=== PATIENT | male | born 1950 | race Caucasian/White ===

== ENCOUNTER 2016-11-16 13:50 | Inpatient (IN) ==
[2016-11-16] MEDS ORDERED: MORPHINE 2 MG/1 ML SYRINGE IV STA (14:12)
[2016-11-16] MEDS ORDERED: ASPIRIN 325 MG TABLET PO STA (14:12)
[2016-11-16] MEDS ORDERED: ONDANSETRON 4 MG/2 ML VIAL IV STA (14:12)
[2016-11-16] MEDS ORDERED: SODIUM CHLORIDE 0.9% 1,000 ML IV STA (14:12)
[2016-11-16] MEDS ORDERED: ENOXAPARIN 100 MG/ML SYRINGE SUBCUT STA (14:12)
[2016-11-16] MEDS ORDERED: ALUM/MAG/SIMETH/LIDO VISC 1:1 30 ML BOTTLE PO STA (14:13)
[2016-11-16] MEDS ORDERED: PANTOPRAZOLE 40 MG VIAL IV STA (14:13)
[2016-11-16] MEDS ORDERED: PANTOPRAZOLE 40 MG VIAL IV ONE (14:17)
[2016-11-16] MEDS ORDERED: ENOXAPARIN 100 MG/ML SYRINGE SUBCUT ONE (14:17)
[2016-11-16] MEDS ORDERED: ONDANSETRON 4 MG/2 ML VIAL ONE (14:17)
[2016-11-16] MEDS ORDERED: ASPIRIN 325 MG TABLET ONE (14:18)
[2016-11-16] MEDS ORDERED: ALUM/MAG/SIMETH/LIDO VISC 1:1 30 ML BOTTLE PO ONE (14:18)
[2016-11-16] MEDS ORDERED: MORPHINE 2 MG/1 ML SYRINGE ONE (14:18)
[2016-11-16] MEDS ORDERED: TICAGRELOR 90 MG TABLET ONE (14:21)
[2016-11-16] MEDS ORDERED: LIDOCAINE 1% 20 ML VIAL ONE (14:25)
[2016-11-16] MEDS ORDERED: SODIUM BICARBONATE 2.4 MEQ/5 ML VIAL ONE (14:25)
[2016-11-16] MEDS ORDERED: HEPARIN/NACL 0.9% 2 UNITS/ML 1,500 ML IV ONE (14:25)
[2016-11-16 14:26] LABS: Basophils % 0.6 % (0.0-0.8); Eosinophils # 0.2 10*3/uL (0.0-0.87); Eosinophils % 2.2 % (0.00-10.9); Hematocrit 43.2 VOL% (42.0-52.0); Hemoglobin 14.8 GM/DL (14.0-18.0); Immature Granulocytes % 0.3 %; Immature Granulocytes Absolute 0.02 #; Lymphocytes # 1.6 10*3/uL (1.4-4.0); Lymphocytes % 22.4 % (21.2-54.2); Mean Corpuscular HGB Conc 34.3 GM/DL (32-36); Mean Corpuscular Hemoglobin 30 PG (27-34); Mean Corpuscular Volume 88.3 FL (87-102); Mean Platelet Volume 11.5 FL (9.6-12.0); Monocytes # 0.5 10*3/uL (0.11-0.8); Monocytes % 7.3 % (1.7-12.7); Neutrophils # 4.9 10*3/uL (1.4-7.4); Neutrophils % 67.2 % (38.7-73.9); Platelet Count 158 T/CUMM (130-400); Red Blood Count 4.89 MC/CUMM (3.8-5.5); Red Cell Distribution Width 12.5 % (9.3-17.3); White Blood Count 7.2 T/CUMM (4-12)
[2016-11-16] MEDS ORDERED: MIDAZOLAM 2 MG/2 ML VIAL ONE (14:29)
[2016-11-16] MEDS ORDERED: BIVALIRUDIN 250 MG VIAL IV ONE (14:29)
[2016-11-16] MEDS ORDERED: fentaNYL 100 MCG/2 ML VIAL ONE (14:29)
[2016-11-16] MEDS ORDERED: HEPARIN/NACL 0.9% 2 UNITS/ML 500 ML IV ONE (14:29)
--- NOTE | 2016-11-16 14:33 | EKG Report ---
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
[2016-11-16 14:34] LABS: INR 1.2; PT Patient Result 12.7 SECS; Partial Thromboplastin Time 24.2 SECS (0-40)
[2016-11-16] MEDS ORDERED: ENOXAPARIN 30 MG/0.3 ML SYRINGE ONE (14:34)
[2016-11-16] MEDS ORDERED: EPTIFIBATIDE 75 MG/100 ML BOTTLE IV ONE (14:36)
[2016-11-16] MEDS ORDERED: EPTIFIBATIDE 20,000 MCG/10 ML VIAL ONE ×2 (14:36→15:15)
[2016-11-16] MEDS ORDERED: TICAGRELOR 90 MG TABLET PO ONE (14:39)
[2016-11-16 14:46] LABS: Alanine Aminotransferase 18 U/L (16-61); Albumin 3.8 G/DL (3.4-5.0); Alkaline Phosphatase 76 U/L (45-117); Aspartate Amino Transferase 23 U/L (0-37); Blood Urea Nitrogen 16 MG/DL (7-18); Calcium 8.9 MG/DL (8.5-10.1); Glucose 117 MG/DL (74-106); Osmolality,Calculated 287.8 MOS/KG (273-304); Potassium 3.7 MMOL/L (3.5-5.1); Sodium 144 MMOL/L (136-145); Total Protein 6.5 G/DL (6.4-8.3); Troponin I Only < 0.015 NG/ML (0.00-0.045)
[2016-11-16] MEDS ORDERED: MORPHINE 10 MG/1 ML VIAL ONE (14:46)
--- NOTE | 2016-11-16 15:03 | Emergency Department Note ---
Shira Camejo Hilary, am scribing for, and in the presence of, Ken Rubio MD 14: 25. Joanne Camejo James D, MD, personally performed the services described in this documentation, ascribed by Emily Silva in my presence, and it is both accurate and complete 503 . Arrival - Arrival Chief Complaint: Chest Pain Stated Complaint: dyspnea, pain shoulder blade,chest pain ED Nursing Triage Note: Oumar was mowing the grass today and reports he completed the yard. He took a shower and put his clothes on but his pain got worse. He reports chest pain, shortness of breath, with numbness and tingling to bilateral upper extremities. Mode of Arrival: Wheelchair Limitations: No Limitations Source: Patient, Significant other (), RN Notes Reviewed Time Seen by Provider: 11/16/16 14:12 - History of Present Illness HPI Narrative: Pt is a 66 y/o white male presenting to the ED with c/o chest pain which onset around 1300. 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 Pt confirms SOB, chest pain that radiates to his shoulder blade, and tingling down his left arm but denies nausea. Pt has no medical problems to speak of per his . Onset (ago): hour(s) Allergies/Adverse Reactions: Allergies Allergy/AdvReac Type Severity Reaction Status Date / Time ciprofloxacin [From Cipro] Allergy BLISTER Verified 11/16/16 14:03 Sulfa (Sulfonamide Allergy BLISTER Verified 11/16/16 14:03 Antibiotics) Review of System - Review of System 12 point system: reviewed and no additional remarkable complaints except as stated - Review of System Constitutional: Absent: fever Respiratory: Present: respiratory distress (SOB) Cardiovascular: Present: chest pain (radiating to shoulder blade and down left arm) Medical,Surgical,& Family Hx - Social History Smoking Status: Never smoker Frequency of Alcohol Use: None Type of Drug Use: None Exam Physical Examination: GENERAL: This is a well-nourished, well-developed white male in no apparent distress. VITAL SIGNS: Temperature: 96.0 Pulse: 61 Respiratory: 22 Blood Pressure: 105/71 O2Sat: 100 HEENT: Head is normocephalic and atraumatic. Pupils are equally round and reactive to light. Extraocular movement are intact. Oropharynx is benign with moist mucous membranes. NECK: Neck is soft and supple without tenderness. There are no masses. There is no lymphadenopathy. LUNGS: Lungs are clear to auscultation bilaterally. Chest rises symmetrically. There is no chest wall tenderness. CV: Heart is regular rate and rhythm without murmurs, rubs, or gallops. ABDOMEN: Abdomen is soft, non-tender to palpation. There are no abnormal masses palpated. There is no organomegaly. Bowel sounds are present and active. SKIN: Skin is warm and dry. No rash. EXTREMITIES: Patient has full range of motion without tenderness. There is no pedal edema. NEUROLOGIC: Awake, alert, and oriented x4. Cranial nerves II through XII are grossly intact. There are no motorsensory deficits. PSYCHIATRIC: Normal affect. Normal mood. Vital Signs: Vital Signs Temperature 97.0 F L 11/16/16 13:51 Pulse Rate 62 11/16/16 13:51 Respiratory Rate 22 11/16/16 13:51 Blood Pressure 105/71 11/16/16 13:51 O2 Sat by Pulse Oximetry 100 11/16/16 13:51 Course Course Narrative: Patient was given subcu Lovenox, Brilinta p.o., morphine, Zofran, and aspirin while in the emergency department. - Consultations Consultation #1: Discussed with Dr. Garcia. 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 Time: 14:25 Results - Labs CBC & BMP: 11/16/16 14:06 11/16/16 14:06 Lab Results: I have reviewed the patients labs Labs: Laboratory Tests 11/16/16 14:06 Troponin I < 0.015 - EKG EKG results: interpreted by ERMD - Impressions EKG: #1 performed at 1352 reveals normal sinus rhythm with normal ST-T waves, normal axis. Rate 70. EKG #2: Performed at 1419 reveals normal sinus rhythm with a rate of 70, ST segment elevation in 2 3 and aVF consistent with an inferior WA. Disposition Clinical Impression: Acute inferior STEMI Case discussed with: patient, patient's family Disposition: Still a Patient Condition: Critical
[2016-11-16] MEDS ORDERED: MORPHINE 2 MG/1 ML SYRINGE IV PRN (15:10)
[2016-11-16] MEDS ORDERED: ACETAMINOPHEN 325 MG TABLET PO PRN (15:10)
[2016-11-16] MEDS ORDERED: ONDANSETRON 4 MG/2 ML VIAL IV PRN (15:10)
[2016-11-16] MEDS ORDERED: ZALEPLON 5 MG CAPSULE PO PRN (15:10)
[2016-11-16] MEDS ORDERED: ACETAMINOPHEN/CODEINE 300-30 MG TABLET PO PRN (15:10)
[2016-11-16] MEDS ORDERED: EPTIFIBATIDE 75 MG/100 ML BOTTLE IV SCH (15:30)
[2016-11-16] MEDS ORDERED: SODIUM CHLORIDE 0.45% 1,000 ML IV SCH (15:30)
--- NOTE | 2016-11-16 15:32 | History and Physical Update ---
Sedation H&P Update - History and Physical H&P was reviewed, the patient examined and there: are no changes in the patients condition since last H&P was completed. - Dictation Physical: refer to H&P completed by admitting physician - Physical Exam Mental Status: alert and oriented Heart: regular rate and rhythm Lung: clear to auscultation Abdomen: within normal limits Vitals: within normal limits History and Physical Changes: The patient presented with acute inferior myocardial infarction. He was evaluated in the Technical Recruiter and I obtained verbal consent from the patient emergently. - Sedation Plan for Sedation: moderate Patient Consent: Procedure disscussed with patient and patinet has consented., Risks and benefits were discussed with patient,including infection,, bleeding, injury to surrounding structures, seizure, temporary nerve, Patient understands and accepts potential risks/benefits and agrees to, proceed. ASA Class: IV Airway Assessment: Class I: Soft palate, uvula, fauces, pillars visible
--- NOTE | 2016-11-16 15:34 | Cardiology History & Physical ---
Assessment and Plan (1) Acute DE, inferior wall Status: Acute Assessment and plan: The patient underwent emergent PCI of his distal right coronary artery with placement of rebel 4 x 60 mm bare-metal stent. He will be treated with aspirin , Brilinta, high-dose Lipitor. We will initiate low-dose beta ramon therapy. Further plan will depend on his clinical evolution. Current Visit: Yes History of Present Illness Chief complaint: CP History of present illness: The patient was evaluated emergently in the Review Coordinator Mr. Monroe is a 66 year old male without a prior cardiac history. He was in his usual state of health until today when he experienced acute onset of severe chest pressure. It radiated into his left arm with associated dizziness, diaphoresis, nausea, shortness of breath. He came to the emergency room and initially his EKG was normal, he then developed worsening symptoms and repeat ECG showed inferior ST elevation. The Review Coordinator was activated and he was encountered in the Review Coordinator for emergent cardiac catheterization. Please see that report for full details. He denies any antecedent exertional chest discomfort, orthopnea, paroxysmal nocturnal dyspnea, lower extremity edema. He has not had any recent acute illnesses. He has no contraindication to dual antiplatelet therapy and denied IVP dye allergy. Allergies Allergy/AdvReac Type Severity Reaction Status Date / Time ciprofloxacin [From Cipro] Allergy BLISTER Verified 11/16/16 14:03 Sulfa (Sulfonamide Allergy BLISTER Verified 11/16/16 14:03 Antibiotics) 12 point system: reviewed and no additional remarkable complaints except as stated Medical,Surgical,& Family Hx - Social History Smoking Status: Never smoker Frequency of Alcohol Use: None Type of Drug Use: None Marital Status: Lives With:: Spouse Functional capacity: independent ambulation Cardiology Physical Exam - Constitutional Vitals: Vital Signs Temp Pulse Resp BP Pulse Ox 97.0 F L 62 22 105/71 100 11/16/16 13:51 11/16/16 13:51 11/16/16 13:51 11/16/16 13:51 11/16/16 13:51 Intake and Output 11/15/16 11/16/16 11/16/16 23:59 07:59 15:59 Other: Weight 104.326 kg Patient Weight 11/16/16 23:59 Weight 104.326 kg Exam: General appearance: normal weight, no acute distress - Head Head exam: Present: normal inspection, normocephalic, atraumatic. Absent: hematoma, laceration - Eye Eye exam: Present: EOMI. Absent: conjunctival injection, nystagmus, periorbital swelling, scleral icterus, laceration to eyelids Pupils: Present: PERRL. Absent: constricted, dilated, fixed, irregular, unequal - ENT ENT exam: Present: normal exam, normal external ear exam - Neck Neck exam: Present: normal inspection. Absent: lymphadenopathy, meningismus, tenderness, thyromegaly - Respiratory Respiratory exam: Present: clear to auscultation bilaterally. Absent: accessory muscle use, chest wall tenderness - Cardiovascular Cardiovascular exam: Present: regular rate and rhythm. Absent: carotid bruit, gallop, JVD, rubs - GI/Abdominal GI/Abdominal exam: Present: normal bowel sounds, soft. Absent: distended, firm , guarding, hernia, mass, tenderness, rebound. - Extremities Exam Extremities exam: Present: normal inspection, normal capillary refill. Absent: calf tenderness, edema - Back Exam Back exam: Present: normal inspection. Absent: muscle spasm, vertebral tenderness - Neurological Exam Neurological exam: Present: alert, oriented X3, grossly intact without resting or intention tremor - Psychiatric Psychiatric exam: Present: normal affect, normal mood - Skin Skin exam: Present: normal color, warm, dry, intact. Absent: cyanosis, diaphoretic, rash, urticaria Result/EKG - Labs CBC & BMP: 11/16/16 14:06 11/16/16 14:06 Lab Results: I have reviewed the past 24 hour labs Labs: Laboratory Results - last 24 hr 11/16/16 11/16/16 11/16/16 14:03 14:06 14:06 WBC 7.2 RBC 4.89 Hgb 14.8 Hct 43.2 MCV 88.3 MCH 30 MCHC 34.3 RDW 12.5 Plt Count 158 MPV 11.5 Neut % (Auto) 67.2 Lymph % (Auto) 22.4 [place] % (Auto) 7.3 Eos % (Auto) 2.2 Baso % (Auto) 0.6 Neut # (Auto) 4.9 Lymph # (Auto) 1.6 [place] # (Auto) 0.5 Eos # (Auto) 0.2 Baso # (Auto) 0.0 Immature Gran % 0.3 Nucleated RBC % 0.0 Immature Gran # 0.02 Nucleated RBCs # 0.00 INR 1.2 PT Patient/Control Mix 12.7 Circ Anticoag PTT 24.2 Sodium Potassium Chloride Carbon Dioxide Anion Gap BUN Creatinine GFR Calculation BUN/Creatinine Ratio Glucose POC Glucose 125 H Calculated Osmolality Calcium Total Bilirubin AST ALT Alkaline Phosphatase Total Creatine Kinase CK-MB (CK-2) Troponin I Total Protein Albumin Globulin Albumin/Globulin Ratio 11/16/16 14:06 WBC RBC Hgb Hct MCV MCH MCHC RDW Plt Count MPV Neut % (Auto) Lymph % (Auto) [place] % (Auto) Eos % (Auto) Baso % (Auto) Neut # (Auto) Lymph # (Auto) [place] # (Auto) Eos # (Auto) Baso # (Auto) Immature Gran % Nucleated RBC % Immature Gran # Nucleated RBCs # INR PT Patient/Control Mix Circ Anticoag PTT Sodium 144 Potassium 3.7 Chloride 110 H Carbon Dioxide 22 Anion Gap 15.7 H BUN 16 Creatinine 1.50 H GFR Calculation 63 BUN/Creatinine Ratio 10.00 Glucose 117 H POC Glucose Calculated Osmolality 287.8 Calcium 8.9 Total Bilirubin 1.50 H AST 23 ALT 18 Alkaline Phosphatase 76 Total Creatine Kinase 157 CK-MB (CK-2) 3.0 Troponin I < 0.015 Total Protein 6.5 Albumin 3.8 Globulin 2.7 Albumin/Globulin Ratio 1.4 - EKG EKG results: interpreted by me, sinus rhythm (inferior ST elevation)
--- NOTE | 2016-11-16 15:49 | Cardiology Operative Report ---
Date of Procedure:: 11/16/16 Pre-op diagnosis: acute inferior ST elevation myocardial infarction Post-op diagnosis: same Procedure: 1. Selective left and right coronary angiography. 2. Left heart catheterization with left ventriculogram. 3. Right iliac angiography to rule out vascular complications. 4. Percutaneous intervention of the distal right coronary artery with placement of level IV x 16 mm bare-metal stent. 5. Application Mynx hemostasis device to the right femoral arteriotomy site. Impression: 1. Severe single-vessel coronary artery disease with 100% occluded distal right coronary artery. There is also moderate coronary disease of the left coronary arterial system. 2. Right dominant coronary arteries. 3. Ejection fraction 55% with inferior wall hypokinesis. 4. Angiographically normal right iliac artery without evidence of vascular complications. 5. Successful PCI of the distal RCA as described above. Plan: 1. DAPT > 1 month. 2. Risk factor modification. Equipment: Diagnostic 6 [place] JL4, pigtail catheters Guiding 6 [place] JR4, 300 cm Prowater wire, apex [id number] 2 x 12 mm Balloon , Rebel 4x16 mm bare-metal stent, Hemodynamics: Aortic pressure 115/61 mmHg, left ventricular pressure 102/-1 mmHg, LVEDP -1 mmHg Sedation: Versed 2 mg, fentanyl 75 g Procedure: After informed consent was obtained the patient was prepped and draped in sterile fashion. The right groin was infiltrated with 1% lidocaine and the right femoral artery was accessed via modified Seldinger technique using a micropuncture needle and a 6 [place] femoral arterial sheath was placed. All catheter exchanges were performed over a guidewire under fluoroscopic guidance. Diagnostic 6 [place] JL4 and guiding 6 [place] JR4 catheters were advanced to the left and right coronary arteries respectively and multiple cineangiograms were performed in varying degrees of obliquity and angulation. PCI of the distal right coronary artery was then performed as described below. Thereafter a pigtail catheter was advanced into the left ventricle where hemodynamics were obtained followed by left ventriculogram. At conclusion of the procedure right iliac angiography was performed to rule out vascular complications. A Mynx hemostasis device was unsuccessfully applied to the right femoral arteriotomy site. Findings: 1. The left main artery has 30% diffuse stenosis. 2. The left anterior descending artery extends to the apex but does not wrap around. There is diffuse 40-50% stenosis in the proximal to midsegment. 3. There is not an intermediate ramus branch. 4. The circumflex artery is nondominant. It gives rise to 3 marginal branches that have mild to moderate coronary atherosclerosis and then continues along the AV groove without significant contribution to the left ventricle. It is free of significant disease. 5. The right coronary artery is large, with 100% thrombotic occlusion in the distal segment prior to the bifurcation. Some faint left to right collateralization was noted on left coronary angiography. 6. Ejection fraction is 55 % with severe inferior wall hypokinesis. 7. No significant mitral regurgitation. 8. No significant aortic stenosis. 9. The right iliac artery is angiographically normal without evidence of vascular complications. PCI: The patient was anticoagulated with IV Lovenox and Integrilin. A guiding 6 [place] JR4 catheter was advanced to the right coronary artery. A pro-water 300 cm wire was used to traverse the right coronary artery. A apex spiy-jwg-mozb 2 x 12 mm balloon was advanced to the site of stenosis and angioplasty was performed at 12 cookie. Thereafter, a Rebel 4 x 16 mm bare-metal stent was advanced to the site of angioplasty, and successfully deployed at 16 cookie. Satisfactory angiographic result was obtained with appropriate step-up proximally and distally, and no evidence of residual vascular complications. Preprocedure there was 100% stenosis with BC 0 flow, post procedurally there is 0% residual stenosis with BC-3 flow. Contrast use: Omnipaque 190 cc Fluoro time: 8.6 minutes Complications: none Specimens removed: none Devices implanted: stent and a Mynx device as described above Anesthesia: moderate conscious sedation Surgeon / Physician: Caprice Garcia Aircraft Maintenance Manager: none (James Nuno) Estimated blood loss: minimal Specimens: none sent Condition: critical Disposition: ICU/CCU
[2016-11-16 18:25] LABS: CKMB % 6.6 %
[2016-11-16 18:31] LABS: Troponin I Only 8.18 NG/ML (0.00-0.045)
[2016-11-16] MEDS: ATORVASTATIN 40 MG TABLET PO SCH (20:56)
[2016-11-16] MEDS: METOPROLOL TARTRATE 25 MG TABLET PO SCH (20:56)
[2016-11-16] MEDS: TICAGRELOR 90 MG TABLET PO SCH (20:56)
[2016-11-17] MEDS: NITROGLYCERIN SL 0.4 MG TABLET SL PRN ×3 (00:40→04:46)
[2016-11-17 00:47] LABS: CKMB % 6.8 %
[2016-11-17 01:44] LABS: Troponin I Only 35.5 NG/ML (0.00-0.045)
[2016-11-17 05:48] LABS: Basophils % 0.2 % (0.0-0.8); Eosinophils % 0.2 % (0.00-10.9); Hematocrit 38.6 VOL% (42.0-52.0); Hemoglobin 12.9 GM/DL (14.0-18.0); Immature Granulocytes % 0.4 %; Immature Granulocytes Absolute 0.04 #; Lymphocytes # 0.6 10*3/uL (1.4-4.0); Lymphocytes % 5.5 % (21.2-54.2); Mean Corpuscular HGB Conc 33.4 GM/DL (32-36); Mean Corpuscular Hemoglobin 30 PG (27-34); Mean Platelet Volume 11.8 FL (9.6-12.0); Monocytes # 0.6 10*3/uL (0.11-0.8); Monocytes % 5.4 % (1.7-12.7); Neutrophils # 9.7 10*3/uL (1.4-7.4); Neutrophils % 88.3 % (38.7-73.9); Platelet Count 152 T/CUMM (130-400); Red Blood Count 4.29 MC/CUMM (3.8-5.5); Red Cell Distribution Width 12.9 % (9.3-17.3)
[2016-11-17 06:38] LABS: Calcium 8.3 MG/DL (8.5-10.1); Osmolality,Calculated 284.1 MOS/KG (273-304); Potassium 4.2 MMOL/L (3.5-5.1); Risk Ratio 3.02
--- NOTE | 2016-11-17 07:06 | EKG Report ---
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
[2016-11-17] MEDS: TICAGRELOR 90 MG TABLET PO SCH ×3 (07:20→21:10)
[2016-11-17] MEDS: METOPROLOL TARTRATE 25 MG TABLET PO SCH ×3 (07:20→21:11)
[2016-11-17] MEDS: PANTOPRAZOLE 40 MG TABLET PO SCH ×2 (07:21→08:01)
[2016-11-17] MEDS: ASPIRIN EC 81 MG TABLET PO SCH ×2 (07:21→08:01)
[2016-11-17 08:15] LABS: CKMB % 5.3 %; Troponin I Only 23.7 NG/ML (0.00-0.045)
--- NOTE | 2016-11-17 09:16 | Physician Query Form ---
CLICK EDIT DOCUMENT TO SELECT QUERY ANSWER --> OK --> SIGN Katy Nunes RN Clinical Ear Specialist W) [phone] (f) [phone] [email or web address] PROVIDERS: Make your selection(s) from the choices in EACH section by typing an "x" and enter comments in the comment section. Please use your independent medical judgment in providing your response. This request does not imply that any particular answer is desired or expected. CLINICAL INDICATORS: (Providers should not edit this section) Based on documentation of Creatinine from 1.5 to 1.10. GFR form 63 to 93. 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 Clarify which of the following most accurately represents the patient's renal status: ( ) Acute kidney injury (non-traumatic) ( ) Acute renal failure ( ) Acute renal failure with underlying Chronic Kidney Disease (CKD) - please provide stage below ( ) Acute renal failure with pathological renal lesion ( ) Acute renal failure with necrosis ( ) tubular ( ) medullary ( ) cortical ( ) CKD - please provide stage below ( ) End Stage Renal Disease ( ) Acute interstitial nephritis ( ) Hepatorenal syndrome ( ) Other, please specify: (X ) Clinically unable to determine Chronic Kidney Disease Stages Source: National Kidney Disease Foundation ( ) Stage I (eGFR > or = 90) ( ) Stage II (eGFR 60 - 89) ( ) Stage III (eGFR 30 - 59) ( ) Stage IV (eGFR 15 - 29) ( ) Stage V (eGFR < 15 or dialysis) COMMENTS: not my pt. refer to drs involved with his care. i did not see pt this admit. Yuli Allen Use of terms such as suspected, likely, or probable (associated with a specific diagnosis that is being evaluated, monitored, or treated as if it exists) are acceptable and can be restated in the discharge summary if not ruled out. LUIS
--- NOTE | 2016-11-17 17:23 | Cardiology Progress Note ---
Assessment and Plan (1) Acute OR, inferior wall Status: Acute Assessment and plan: See HPI Current Visit: Yes Cardiology - PN: Subj Interval history: He is doing well postoperatively. No recurrent chest pain. Denies any shortness of breath. No groin complaints. Impression and plan: 1. Acute inferior myocardial infarction-status post PCI of distal RCA with bare -metal stenting. He is being treated with dual antiplatelet therapy and high- dose statin therapy. He prefers not to take Lipitor because his had problems, we will change him to Crestor. We will transfer him to the floor today. He will be observed in the hospital for approximately 3 days to monitor for postinfarct complications. Exam (Progress Note) - Constitutional Vitals: Period Temp Pulse Resp BP Sys/Gandara Pulse Ox Last 24 Hr 97.4 F-98.6 F 52-71 12-25 102-130/43-78 93-98 Exam: General appearance: normal weight, no acute distress - Head Head exam: Present: normal inspection, normocephalic, atraumatic. Absent: hematoma, laceration - Eye Eye exam: Present: EOMI. Absent: conjunctival injection, nystagmus, periorbital swelling, scleral icterus, laceration to eyelids Pupils: Present: PERRL. Absent: constricted, dilated, fixed, irregular, unequal - ENT ENT exam: Present: normal exam, normal external ear exam - Neck Neck exam: Present: normal inspection. Absent: lymphadenopathy, meningismus, tenderness, thyromegaly - Respiratory Respiratory exam: Present: clear to auscultation bilaterally. Absent: accessory muscle use, chest wall tenderness - Cardiovascular Cardiovascular exam: Present: regular rate and rhythm. Absent: carotid bruit, gallop, JVD, rubs - GI/Abdominal GI/Abdominal exam: Present: normal bowel sounds, soft. Absent: distended, firm , guarding, hernia, mass, tenderness, rebound. - Extremities Exam Extremities exam: Present: normal inspection, normal capillary refill. Absent: calf tenderness, edema - Back Exam Back exam: Present: normal inspection. Absent: muscle spasm, vertebral tenderness - Neurological Exam Neurological exam: Present: alert, oriented X3, grossly intact without resting or intention tremor - Psychiatric Psychiatric exam: Present: normal affect, normal mood - Skin Skin exam: Present: normal color, warm, dry, intact. Absent: cyanosis, diaphoretic, rash, urticaria The right groin is with ecchymosis but no significant hematoma or bruit. Right femoral and posterior tibialis pulses are 3+. Result/EKG - Labs CBC & BMP: 11/17/16 04:34 11/17/16 04:34 Lab Results: I have reviewed the past 24 hour labs Labs: Laboratory Results - last 24 hr 11/16/16 11/16/16 11/17/16 17:21 20:15 00:08 WBC RBC Hgb Hct MCV MCH MCHC RDW Plt Count MPV Neut % (Auto) Lymph % (Auto) [place] % (Auto) Eos % (Auto) Baso % (Auto) Neut # (Auto) Lymph # (Auto) [place] # (Auto) Eos # (Auto) Baso # (Auto) Immature Gran % Nucleated RBC % Immature Gran # Nucleated RBCs # Sodium Potassium Chloride Carbon Dioxide Anion Gap BUN Creatinine GFR Calculation BUN/Creatinine Ratio Glucose Calculated Osmolality Calcium ALT Total Creatine Kinase 344 H D 658 H D CK-MB (CK-2) 22.6 H D 44.5 H D CK and CKMB Interp 6.6 6.8 Troponin I 8.180 H D 21.000 H D 35.500 H D Triglycerides Cholesterol LDL Cholesterol VLDL Cholesterol HDL Cholesterol Heart Disease Risk Ratio 11/17/16 11/17/16 11/17/16 04:34 04:34 07:16 WBC 11.0 D RBC 4.29 Hgb 12.9 L Hct 38.6 L MCV 90.0 MCH 30 MCHC 33.4 RDW 12.9 Plt Count 152 MPV 11.8 Neut % (Auto) 88.3 H Lymph % (Auto) 5.5 L [place] % (Auto) 5.4 Eos % (Auto) 0.2 Baso % (Auto) 0.2 Neut # (Auto) 9.7 H Lymph # (Auto) 0.6 L [place] # (Auto) 0.6 Eos # (Auto) 0.0 Baso # (Auto) 0.0 Immature Gran % 0.4 Nucleated RBC % 0.0 Immature Gran # 0.04 Nucleated RBCs # 0.00 Sodium 142 Potassium 4.2 Chloride 109 H Carbon Dioxide 23 Anion Gap 14.2 BUN 15 Creatinine 1.10 GFR Calculation 93 BUN/Creatinine Ratio 13.00 Glucose 111 H Calculated Osmolality 284.1 Calcium 8.3 L ALT 23 Total Creatine Kinase 582 H CK-MB (CK-2) 31.1 H D CK and CKMB Interp 5.3 Troponin I 23.700 H D Triglycerides 80 Cholesterol 136 LDL Cholesterol 83.0 VLDL Cholesterol 16.0 HDL Cholesterol 45 Heart Disease Risk Ratio 3.02 Specialty Discharge - Follow Up or Referrals
--- NOTE | 2016-11-17 18:31 | ECHO Report ---
Gabriel Monroe Exam Date: 11/17/2016 09:05 Referring Physician: Technologist: Keisha Romero RDCS Age: 66 Ht (in): 74 Wt (lb): 230 Gender: M Exam Location: [facility] Echo Indications: Acute inferior VT, Dyspnea, unspecified, Dizziness and giddiness, Nausea, Chest pain, unspecified BP: 105 / 63 HR: 58 Rhythm: Sinus Technical Quality: Fair IMPRESSIONS Normal LV systolic function, ejection fraction 60%. Grade 2/4 diastolic dysfunction. Trace to mild mitral, pulmonic and tricuspid regurgitation. MEASUREMENTS (Male / Female) Normal Values 2D ECHO LV Diastolic Diameter PLAX 5.7 cm 4.2 - 5.9 / 3.9 - 5.3 cm LV Systolic Diameter PLAX 3.3 cm LV Fractional Shortening PLAX 41.9 % IVS Diastolic Thickness 0.9 cm 0.6 - 1.0 / 0.6 - 0.9 cm LVPW Diastolic Thickness 1.0 cm 0.6 - 1.0 / 0.6 - 0.9 cm RV Internal Dim ED PLAX 2.4 cm Aortic Root Diameter 3.4 cm LA Systolic Diameter LX 3.9 cm 3.0 - 4.0 / 2.7 - 3.8 cm DOPPLER TR Peak Velocity 277.0 cm/s TR Peak Gradient 30.7 mmHg FINDINGS Left Ventricle Normal left ventricular cavity size. Normal left ventricular wall thickness. Left ventricular ejection fraction is estimated at 60 %. The apical 2 chamber view is of poor quality and the inferior wall motion cannot be well assessed on this study. Right Ventricle The right ventricle is normal in size and function. Right Atrium The right atrium is normal in size. Left Atrium The left atrium is normal in size. Mitral Valve Morphologically normal mitral valve. Trace to mild mitral valve regurgitation. Aortic Valve Morphologically normal aortic valve without significant sclerosis or stenosis. There is no aortic regurgitation. Tricuspid Valve Morphologically normal tricuspid valve. Trace to mild tricuspid valve regurgitation. Tricuspid regurgitation velocities suggest a PAP of 41 mmHg. Pulmonic Valve Morphologically normal pulmonic valve. Trace pulmonary valve regurgitation. Pericardium Normal pericardium without effusion. Aorta Normal ascending aorta dimension. Caprice Garcia MD (Electronically Signed) Final Date: 17 November 2016 18:23
[2016-11-17] MEDS: DOXAZOSIN 4 MG TABLET PO SCH (21:11)
[2016-11-17] MEDS: MONTELUKAST 10 MG TABLET PO SCH (21:11)
[2016-11-17] MEDS: CETIRIZINE 10 MG TABLET PO SCH (21:11)
[2016-11-17] MEDS: ATORVASTATIN 40 MG TABLET PO SCH (21:11)
[2016-11-18 05:02] LABS: Basophils % 0.4 % (0.0-0.8); Eosinophils # 0.2 10*3/uL (0.0-0.87); Eosinophils % 2.5 % (0.00-10.9); Hemoglobin 12.9 GM/DL (14.0-18.0); Immature Granulocytes Absolute 0.08 #; Lymphocytes # 1.3 10*3/uL (1.4-4.0); Lymphocytes % 15.4 % (21.2-54.2); Mean Corpuscular HGB Conc 33.1 GM/DL (32-36); Mean Corpuscular Hemoglobin 30 PG (27-34); Mean Corpuscular Volume 90.7 FL (87-102); Mean Platelet Volume 11.4 FL (9.6-12.0); Monocytes # 0.7 10*3/uL (0.11-0.8); Monocytes % 8.8 % (1.7-12.7); Neutrophils % 71.9 % (38.7-73.9); Platelet Count 122 T/CUMM (130-400); Red Cell Distribution Width 12.8 % (9.3-17.3); White Blood Count 8.3 T/CUMM (4-12)
[2016-11-18 05:45] LABS: Calcium 8.1 MG/DL (8.5-10.1); Magnesium 2.1 MG/DL (1.8-2.4); Osmolality,Calculated 283.1 MOS/KG (273-304); Potassium 3.9 MMOL/L (3.5-5.1)
--- NOTE | 2016-11-18 07:05 | Cardiology Progress Note ---
<Sadia Perez E - Last Filed: 11/18/16 10:23> Assessment and Plan - Time spent with patient Time spent with patient: Greater than 30 minutes (1) CAD (coronary artery disease) Status: Chronic Assessment and plan: See plan of care listed below Current Visit: Yes (2) Hypertension Status: Chronic Assessment and plan: See plan of care listed below Current Visit: Yes (3) Dyslipidemia Status: Chronic Assessment and plan: See plan of care listed below Current Visit: Yes (4) Acute CO, inferior wall Status: Resolved Assessment and plan: See plan of care listed below Current Visit: Yes Cardiology - PN: Subj Interval history: [employer] DRIVER: DR. GARCIA Patient presented to the emergency department at [facility] November 16, 2016 with complaints of chest pain, shortness of breath, nausea , diaphoresis and dizziness. EKG revealed inferior ST elevation. He was taken emergently to the cardiac catheterization lab where Dr. Caprice Garcia performed heart catheterization resulting in emergent PCI of his distal right coronary artery. He tolerated the procedure well without complication and has been housed in our CCU. He is tolerating aspirin, Brilinta, lipid-lowering agent and beta blockade. Blood pressure will not allow introduction of an KATIE inhibitor at this point. NOVEMBER 18, 2016: This morning, patient states he is feeling well. He denies chest pain, heaviness or tightness. Vital signs are stable. He is tolerating low-dose beta blockers. Labs are stable as well. He will be transitioned to our telemetry unit. Hopefully, tomorrow he will be ready for discharge home. Cardiac education ensues during the remainder the hospital stay. Troponin peaked at 35 and is trending down at this point. Echocardiogram revealed EF 60% , no significant valvular abnormality. PAP 41 mmHg. ASSESSMENT/PLAN: 1. STEMI -hopefully, patient will be discharged home tomorrow. 2. CAD -see plan of care listed above. He seems to be progressing nicely 3. HYPERTENSION -adequately controlled. Unfortunately, blood pressure will not tolerate KATIE inhibitor at this point. 4. DYSLIPIDEMIA -high dose statin on board. LDL 83. Exam (Progress Note) - Constitutional Vitals: Period Temp Pulse Resp BP Sys/Gandara Pulse Ox Last 24 Hr 98.2 F-99.7 F 52-60 10-20 102-128/50-79 94-99 Exam: General: [Appears well with no apparent distress.] [Pleasant and cooperative. ] [Appears comfortable.] HEENT: [PERRL, normocephalic, atraumatic. Mucous membranes moist. No jaundice noted. Conjunctiva moist and clear, sclerae anicteric] Neck: No JVD/HJR, no thyromegaly or lymphadenopathy noted. No carotid bruit appreciated Cardiac: [Regular rate and rhythm.] [No murmur rub or gallop.] Lungs: [Clear to auscultation without accessory muscle use to assist the respiratory pattern.] Not requiring oxygen Abdomen: Soft, bowel sounds normoactive. Nontender and nondistended. No abdominal bruit or thrill noted. No masses noted. Musculoskeletal: No fluid collection. Decreased range of motion is noted. Extremities: Right groin soft, free of hematoma or bruit. No clubbing, cyanosis noted. [ No edema noted.] Upper extremity pulses 2+. Lower extremity pulses 2+. Capillary refill less than 3 seconds. Skin: No unusual lesions or rashes. No skin breakdown appreciated. Neuro: Awake, alert and oriented 3. Moves all extremities well without hemiparesis or paralysis. No essential tremor is appreciated. Result/EKG - Labs CBC & BMP: 11/18/16 04:40 11/18/16 04:40 Labs: Laboratory Results - last 24 hr 11/17/16 11/18/16 11/18/16 07:16 04:40 04:40 WBC 8.3 RBC 4.30 Hgb 12.9 L Hct 39.0 L MCV 90.7 MCH 30 MCHC 33.1 RDW 12.8 Plt Count 122 L MPV 11.4 Neut % (Auto) 71.9 Lymph % (Auto) 15.4 L [place] % (Auto) 8.8 Eos % (Auto) 2.5 Baso % (Auto) 0.4 Neut # (Auto) 6.0 Lymph # (Auto) 1.3 L [place] # (Auto) 0.7 Eos # (Auto) 0.2 Baso # (Auto) 0.0 Immature Gran % 1.0 Nucleated RBC % 0.0 Immature Gran # 0.08 Nucleated RBCs # 0.00 Sodium 142 Potassium 3.9 Chloride 110 H Carbon Dioxide 26 Anion Gap 9.9 BUN 14 Creatinine 1.10 GFR Calculation 93 BUN/Creatinine Ratio 12.00 Glucose 93 Calculated Osmolality 283.1 Calcium 8.1 L Magnesium 2.1 Total Creatine Kinase 582 H CK-MB (CK-2) 31.1 H D CK and CKMB Interp 5.3 Troponin I 23.700 H D Specialty Discharge - Follow Up or Referrals <Caprice Garcia - Last Filed: 11/18/16 16:26> Assessment and Plan (1) Acute CO, inferior wall Status: Resolved Current Visit: Yes Cardiology - PN: Subj Interval history: I have personally interviewed and evaluated the patient, reviewed the chart and discussed medical decision-making with Practitioner Ana. I have read this note and agree with her documentation here in. Exam (Progress Note) - Constitutional Vitals: Period Temp Pulse Resp BP Sys/Gandara Pulse Ox Last 24 Hr 98.7 F-99.7 F 54-61 10-18 114-128/60-79 96-99 Result/EKG - Labs CBC & BMP: 11/18/16 04:40 11/18/16 04:40 Labs: Laboratory Results - last 24 hr 11/18/16 11/18/16 04:40 04:40 WBC 8.3 RBC 4.30 Hgb 12.9 L Hct 39.0 L MCV 90.7 MCH 30 MCHC 33.1 RDW 12.8 Plt Count 122 L MPV 11.4 Neut % (Auto) 71.9 Lymph % (Auto) 15.4 L [place] % (Auto) 8.8 Eos % (Auto) 2.5 Baso % (Auto) 0.4 Neut # (Auto) 6.0 Lymph # (Auto) 1.3 L [place] # (Auto) 0.7 Eos # (Auto) 0.2 Baso # (Auto) 0.0 Immature Gran % 1.0 Nucleated RBC % 0.0 Immature Gran # 0.08 Nucleated RBCs # 0.00 Sodium 142 Potassium 3.9 Chloride 110 H Carbon Dioxide 26 Anion Gap 9.9 BUN 14 Creatinine 1.10 GFR Calculation 93 BUN/Creatinine Ratio 12.00 Glucose 93 Calculated Osmolality 283.1 Calcium 8.1 L Magnesium 2.1
--- NOTE | 2016-11-18 07:26 | EKG Report ---
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
[2016-11-18] MEDS: ASPIRIN EC 81 MG TABLET PO SCH (08:56)
[2016-11-18] MEDS: METOPROLOL TARTRATE 25 MG TABLET PO SCH ×2 (08:56→20:05)
[2016-11-18] MEDS: PANTOPRAZOLE 40 MG TABLET PO SCH (08:57)
[2016-11-18] MEDS: TICAGRELOR 90 MG TABLET PO SCH ×2 (08:57→20:05)
[2016-11-18] MEDS: DOXAZOSIN 4 MG TABLET PO SCH (20:05)
[2016-11-18] MEDS: CETIRIZINE 10 MG TABLET PO SCH (20:06)
[2016-11-18] MEDS: MONTELUKAST 10 MG TABLET PO SCH (20:06)
[2016-11-18] MEDS ORDERED: PRAVASTATIN 40 MG TABLET PO SCH (21:00)
[2016-11-18] MEDS ORDERED: ROSUVASTATIN 10 MG TABLET PO SCH (21:00)
[2016-11-19 04:43] LABS: Basophils % 0.4 % (0.0-0.8); Eosinophils # 0.3 10*3/uL (0.0-0.87); Eosinophils % 3.3 % (0.00-10.9); Hemoglobin 13.3 GM/DL (14.0-18.0); Immature Granulocytes % 0.5 %; Immature Granulocytes Absolute 0.04 #; Lymphocytes # 1.3 10*3/uL (1.4-4.0); Mean Corpuscular HGB Conc 33.3 GM/DL (32-36); Mean Corpuscular Hemoglobin 30 PG (27-34); Mean Corpuscular Volume 90.1 FL (87-102); Mean Platelet Volume 11.6 FL (9.6-12.0); Monocytes # 0.7 10*3/uL (0.11-0.8); Neutrophils # 5.3 10*3/uL (1.4-7.4); Neutrophils % 69.8 % (38.7-73.9); Platelet Count 135 T/CUMM (130-400); Red Blood Count 4.44 MC/CUMM (3.8-5.5); Red Cell Distribution Width 12.7 % (9.3-17.3); White Blood Count 7.5 T/CUMM (4-12)
[2016-11-19 05:08] LABS: Calcium 8.5 MG/DL (8.5-10.1); Magnesium 2.3 MG/DL (1.8-2.4); Osmolality,Calculated 282.1 MOS/KG (273-304)
[2016-11-19 07:50] VITALS: BP 113/66
[2016-11-19] MEDS: ASPIRIN EC 81 MG TABLET PO SCH (08:43)
[2016-11-19] MEDS: TICAGRELOR 90 MG TABLET PO SCH (08:43)
[2016-11-19] MEDS: METOPROLOL TARTRATE 25 MG TABLET PO SCH (08:43)
[2016-11-19] MEDS: PANTOPRAZOLE 40 MG TABLET PO SCH (08:43)
--- NOTE | 2016-11-19 11:26 | Discharge Summary ---
Hospital Course - Hospital Course Hospital Course: This is a 66-year-old white male who presented to the hospital with acute inferior myocardial infarction. He underwent emergent left heart catheterization with PCI to the distal right coronary artery with placement of a rebel 4 x 16 mm bare-metal stent. He also had moderate left coronary artery disease. His postoperative course was uneventful, he did not have any evidence of heart failure, complications from the myocardial infarction, groin complications nor any postinfarct angina. He remained hemodynamically stable. He preferred to be on Pravachol as opposed to Lipitor because that is what his takes and she had previously had problems with the Lipitor. He is being discharged home in stable condition. Cardiac rehabilitation was consulted while he was here. He has been educated in the paramount importance of medication compliance, particularly with his dual antiplatelet therapy. Postcardiac catheterization instructions have been given. We have discussed cardiac diet at length. Diagnosis - Discharge Diagnosis (1) Acute PA, inferior wall Status: Resolved Specialty Discharge - Follow Up or Referrals Discharge Plan - Discharge Data Disposition: Disch To Home/Self Care Condition at Discharge: Stable Discharge Diet: heart healthy Activity: no lifting (1 week) Hygiene: may shower - Discharge Medications New Metoprolol Tartrate Tab [Lopressor Tab] 12.5 mg PO BID #180 tablet Pravastatin [Pravachol] 40 mg PO BEDTIME #90 tablet Ticagrelor [Brilinta] 90 mg PO BID #180 tablet Aspirin EC Tab 81 mg PO DAILY #90 tablet Continue Montelukast Tab [Singulair Tab] 10 mg PO BEDTIME Doxazosin [Cardura] 4 mg PO BEDTIME Cetirizine Tab [ZyrTEC Tab] 10 mg PO BEDTIME - Follow Up or Referral Follow Up: Caprice Garcia MD [Physician] - 2 Weeks (f/u 1-2 weeks) - Forms/Instructions Instructions: Myocardial Infarction (GEN), Left Heart Catheterization (DC), Heart Healthy Diet (GEN), Coronary Intravascular Stent Placement (DC) Exam - Constitutional Vitals: Period Temp Pulse Resp BP Sys/Gandara Pulse Ox Last 24 Hr 98.6 F-99.1 F 55-62 17-20 107-122/58-66 95-97 Exam: General appearance: normal weight, no acute distress - Head Head exam: Present: normal inspection, normocephalic, atraumatic. Absent: hematoma, laceration - Eye Eye exam: Present: EOMI. Absent: conjunctival injection, nystagmus, periorbital swelling, scleral icterus, laceration to eyelids Pupils: Present: PERRL. Absent: constricted, dilated, fixed, irregular, unequal - ENT ENT exam: Present: normal exam, normal external ear exam - Neck Neck exam: Present: normal inspection. Absent: lymphadenopathy, meningismus, tenderness, thyromegaly - Respiratory Respiratory exam: Present: clear to auscultation bilaterally. Absent: accessory muscle use, chest wall tenderness - Cardiovascular Cardiovascular exam: Present: regular rate and rhythm. Absent: carotid bruit, gallop, JVD, rubs - GI/Abdominal GI/Abdominal exam: Present: normal bowel sounds, soft. Absent: distended, firm , guarding, hernia, mass, tenderness, rebound. - Extremities Exam Extremities exam: Present: normal inspection, normal capillary refill. Absent: calf tenderness, edema - Back Exam Back exam: Present: normal inspection. Absent: muscle spasm, vertebral tenderness - Neurological Exam Neurological exam: Present: alert, oriented X3, grossly intact without resting or intention tremor - Psychiatric Psychiatric exam: Present: normal affect, normal mood - Skin Skin exam: Present: normal color, warm, dry, intact. Absent: cyanosis, diaphoretic, rash, urticaria The right groin is with ecchymosis but no significant hematoma or bruit. Right femoral and posterior tibialis pulses are 3+. Discharge Results Procedures and tests throughout hospitalization: Pending Orders 11/20/16 04:00 BMP w/ Mg [Basic Metabolic Panel w/Mg] IN AM CBC [Comp Blood Count Auto Diff] IN AM 11/21/16 04:00 BMP w/ Mg [Basic Metabolic Panel w/Mg] IN AM CBC [Comp Blood Count Auto Diff] IN AM Labs on day of discharge: Labs from last 24 hours 11/19/16 11/19/16 04:19 04:19 WBC 7.5 RBC 4.44 Hgb 13.3 L Hct 40.0 L MCV 90.1 MCH 30 MCHC 33.3 RDW 12.7 Plt Count 135 MPV 11.6 Neut % (Auto) 69.8 Lymph % (Auto) 17.0 L [place] % (Auto) 9.0 Eos % (Auto) 3.3 Baso % (Auto) 0.4 Neut # (Auto) 5.3 Lymph # (Auto) 1.3 L [place] # (Auto) 0.7 Eos # (Auto) 0.3 Baso # (Auto) 0.0 Immature Gran % 0.5 Nucleated RBC % 0.0 Immature Gran # 0.04 Nucleated RBCs # 0.00 Sodium 142 Potassium 4.0 Chloride 110 H Carbon Dioxide 24 Anion Gap 12.0 BUN 13 Creatinine 1.00 GFR Calculation 104 BUN/Creatinine Ratio 13.00 Glucose 95 Calculated Osmolality 282.1 Calcium 8.5 Magnesium 2.3 DS: Provider Date of admission: 11/16/16 15:10 Primary care physician: . No PCP Attending physician on admission: Caprice Garcia, Consults: 11/16/16 20:38 Consult to Dietitian [CONS] Routine Reason for Dietitian: Dietary Consult Consult Comment: POST CATH Discharging clinician: Caprice Garcia, Expected date of discharge: 11/19/16
== END 2016-11-19 12:27 | disposition home or self-care (01) | DRG 249 ==
LOC: N.ED 13:50 → N.CL 14:27 → N.CC 15:10 → N.TELEN 11-18 13:14
PROVIDERS: ADMIT Internal Medicine Cardiovascular Disease; ATTEND Internal Medicine Cardiovascular Disease
PROC: CLCCHCL (ICD-10-PCS; 2016-11-16 15:45)

== ENCOUNTER 2019-05-20 08:39 | Inpatient (IN) ==
[2019-05-20 09:10] LABS: Basophils % 0.4 % (0.0-0.8); Eosinophils % 0.4 % (0.00-10.9); Hematocrit 43.6 VOL% (42.0-52.0); Hemoglobin 14.4 GM/DL (14.0-18.0); Immature Granulocytes % 0.1 %; Immature Granulocytes Absolute 0.01 #; Lymphocytes # 0.4 10*3/uL (1.4-4.0); Lymphocytes % 5.2 % (21.2-54.2); Mean Corpuscular Volume 91.2 FL (87-102); Mean Platelet Volume 10.6 FL (9.6-12.0); Monocytes % 7.4 % (1.7-12.7); Neutrophils % 86.5 % (38.7-73.9); Platelet Count 134 T/CUMM (130-400); Red Blood Count 4.78 MC/CUMM (3.8-5.5); Red Cell Distribution Width 12.9 % (9.3-17.3); White Blood Count 8.3 T/CUMM (4-12)
[2019-05-20] MEDS ORDERED: ASPIRIN 325 MG TABLET PO STA (09:27)
[2019-05-20] MEDS ORDERED: MORPHINE 4 MG/1 ML VIAL IV STA (09:27)
[2019-05-20] MEDS ORDERED: ONDANSETRON 4 MG/2 ML VIAL IV STA (09:27)
[2019-05-20 09:38] LABS: Albumin 3.7 G/DL (3.4-5.0); Bilirubin,Total 1.1 MG/DL (0.2-1.0); Calcium 8.1 MG/DL (8.5-10.1); Total Protein 6.6 G/DL (6.4-8.3)
[2019-05-20] MEDS ORDERED: PANTOPRAZOLE 40 MG VIAL IV ONE (09:46)
[2019-05-20] MEDS ORDERED: PANTOPRAZOLE 40 MG VIAL IV STA (09:46)
[2019-05-20] MEDS ORDERED: ALUM/MAG/SIMETH/LIDO VISC 1:1 30 ML BOTTLE PO STA (09:46)
[2019-05-20] MEDS ORDERED: ALUM/MAG/SIMETH/LIDO VISC 1:1 30 ML BOTTLE PO ONE (09:47)
[2019-05-20] MEDS ORDERED: NITROGLYCERIN 2% OINT 1 INCH/GM PACK TOP STA (09:47)
[2019-05-20 09:52] LABS: INR 2.3
[2019-05-20] MEDS ORDERED: SODIUM CHLORIDE 0.9% 1,000 ML IV SCH (10:54)
[2019-05-20] MEDS ORDERED: ONDANSETRON 4 MG/2 ML VIAL IV PRN (10:54)
[2019-05-20] MEDS ORDERED: MORPHINE 4 MG/1 ML VIAL IV PRN (10:54)
[2019-05-20] MEDS ORDERED: NITROGLYCERIN SL 0.4 MG TABLET SL PRN (12:44)
[2019-05-20 12:45] LABS: Apearance,Urine CLEAR (Clear); Bilirubin,Urine Negative (Negative); Blood, Urine Negative (Negative); Glucose,Urine (UA) Negative (Negative); Ketones,Urine Negative (Negative); Mucus,Urine Few /LPF (Occasional); Nitrite,Urine Negative (Negative); Protein,Urine 30 MG/DL; RBC,Urine 8 /HPF (0-4); Urine Color Yellow (Yellow); Urine Specific Gravity 1.018 (1.001-1.035); Urine Urobilinogen < 2.0 EU/DL (0.2-1.0)
[2019-05-20] MEDS ORDERED: diphenhydrAMINE CAP 25 MG CAPSULE PO PRN (13:11)
[2019-05-20] MEDS ORDERED: MAGNESIUM HYDROXIDE SUSP 30 ML UDCUP PO PRN (13:11)
[2019-05-20] MEDS: ASPIRIN EC 81 MG TABLET PO SCH (13:48)
[2019-05-20] MEDS ORDERED: BENZONATATE 100 MG CAPSULE PO PRN (19:04)
[2019-05-20] MEDS ORDERED: MONTELUKAST 10 MG TABLET PO SCH (21:00)
[2019-05-20] MEDS: COENZYME Q10 100 MG CAPSULE PO SCH (21:42)
[2019-05-20] MEDS: ROSUVASTATIN 10 MG TABLET PO SCH (21:42)
[2019-05-20] MEDS: KETOROLAC 30 MG/1 ML VIAL IV SCH (21:43)
[2019-05-20] MEDS: DOXAZOSIN 4 MG TABLET PO SCH (21:43)
[2019-05-20] MEDS: ACETAMINOPHEN 325 MG TABLET PO SCH (21:43)
[2019-05-20] MEDS: CETIRIZINE 10 MG TABLET PO SCH (21:43)
[2019-05-21 04:32] LABS: Basophils % 0.2 % (0.0-0.8); Eosinophils # 0.1 10*3/uL (0.0-0.87); Eosinophils % 0.9 % (0.00-10.9); Hematocrit 41.1 VOL% (42.0-52.0); Hemoglobin 13.1 GM/DL (14.0-18.0); Immature Granulocytes % 0.5 %; Immature Granulocytes Absolute 0.04 #; Lymphocytes # 1.2 10*3/uL (1.4-4.0); Lymphocytes % 13.5 % (21.2-54.2); Mean Corpuscular HGB Conc 31.9 GM/DL (32-36); Mean Corpuscular Volume 94.5 FL (87-102); Mean Platelet Volume 11.2 FL (9.6-12.0); Monocytes % 13.3 % (1.7-12.7); Neutrophils % 71.6 % (38.7-73.9); Platelet Count 120 T/CUMM (130-400); Red Blood Count 4.35 MC/CUMM (3.8-5.5); Red Cell Distribution Width 13.1 % (9.3-17.3); White Blood Count 8.8 T/CUMM (4-12)
[2019-05-21 04:45] LABS: INR 2.4
[2019-05-21 04:49] LABS: PT Patient Result 25.8 SECS (9.6-12.2)
[2019-05-21 04:57] LABS: Rheumatoid Factor < 15 IU/ML (<15)
[2019-05-21 05:01] LABS: Albumin 3.1 G/DL (3.4-5.0); Bilirubin,Total 2.5 MG/DL (0.2-1.0); Calcium 8.2 MG/DL (8.5-10.1); Osmolality,Calculated 280.4 MOS/KG (273-304); Risk Ratio 1.66; Total Protein 6.1 G/DL (6.4-8.3); VLDL CHOLESTEROL 9.4 MG/DL
[2019-05-21] MEDS ORDERED: PANTOPRAZOLE 40 MG VIAL IV SCH (09:00)
[2019-05-21] MEDS: KETOROLAC 30 MG/1 ML VIAL IV SCH ×2 (09:31→14:37)
[2019-05-21] MEDS: AMIODARONE 200 MG TABLET PO SCH (10:11)
[2019-05-21] MEDS: ASPIRIN EC 81 MG TABLET PO SCH (10:12)
[2019-05-21] MEDS: ACETAMINOPHEN 325 MG TABLET PO SCH ×3 (10:12→21:42)
[2019-05-21] MEDS: PANTOPRAZOLE 40 MG TABLET PO SCH (10:13)
[2019-05-21] MEDS ORDERED: ALBUTEROL/IPRATROPIUM 3 ML NEB RESP TX PRN (11:13)
[2019-05-21] MEDS: MONTELUKAST 10 MG TABLET PO SCH ×2 (12:11→21:47)
[2019-05-21] MEDS: MEROPENEM 500 MG in SODIUM CHLORIDE 0.9% 100 ML IV SCH ×2 (12:13→17:49)
[2019-05-21] MEDS: ALBUTEROL/IPRATROPIUM 3 ML NEB RESP TX SCH ×2 (13:10→19:08)
[2019-05-21] MEDS: CLINDAMYCIN INJ 300 MG in PREMIX 1 EACH IV SCH ×2 (13:54→19:45)
[2019-05-21] MEDS: INDOMETHACIN 25 MG CAPSULE PO SCH ×2 (17:47→21:43)
[2019-05-21] MEDS: COENZYME Q10 100 MG CAPSULE PO SCH (21:42)
[2019-05-21] MEDS: ROSUVASTATIN 10 MG TABLET PO SCH (21:43)
[2019-05-21] MEDS: DOXAZOSIN 4 MG TABLET PO SCH (21:43)
[2019-05-21] MEDS: CETIRIZINE 10 MG TABLET PO SCH (21:44)
[2019-05-22] MEDS: MEROPENEM 500 MG in SODIUM CHLORIDE 0.9% 100 ML IV SCH ×3 (00:37→13:29)
[2019-05-22] MEDS: CLINDAMYCIN INJ 300 MG in PREMIX 1 EACH IV SCH ×3 (01:27→13:29)
[2019-05-22] MEDS: ALBUTEROL/IPRATROPIUM 3 ML NEB RESP TX SCH ×2 (02:54→08:06)
[2019-05-22 04:52] LABS: Basophils % 0.3 % (0.0-0.8); Eosinophils # 0.2 10*3/uL (0.0-0.87); Eosinophils % 2.4 % (0.00-10.9); Hematocrit 37.3 VOL% (42.0-52.0); Hemoglobin 12.1 GM/DL (14.0-18.0); Immature Granulocytes % 0.4 %; Immature Granulocytes Absolute 0.03 #; Lymphocytes % 13.7 % (21.2-54.2); Mean Corpuscular HGB Conc 32.4 GM/DL (32-36); Mean Corpuscular Volume 94.2 FL (87-102); Mean Platelet Volume 11.4 FL (9.6-12.0); Monocytes % 10.2 % (1.7-12.7); Platelet Count 111 T/CUMM (130-400); Red Blood Count 3.96 MC/CUMM (3.8-5.5); Red Cell Distribution Width 13.1 % (9.3-17.3); White Blood Count 7.5 T/CUMM (4-12)
[2019-05-22 04:59] LABS: INR 1.8; PT Patient Result 19.4 SECS (9.6-12.2)
[2019-05-22 05:11] LABS: Albumin 2.7 G/DL (3.4-5.0); Bilirubin,Direct 0.37 MG/DL (0.0-0.20); Bilirubin,Indirect 2.4 MG/DL (0.0-1.0); Bilirubin,Total 2.8 MG/DL (0.2-1.0); Calcium 8.1 MG/DL (8.5-10.1); Osmolality,Calculated 285.1 MOS/KG (273-304); Total Protein 5.6 G/DL (6.4-8.3)
[2019-05-22] MEDS: AMIODARONE 200 MG TABLET PO SCH (08:44)
[2019-05-22] MEDS: INDOMETHACIN 25 MG CAPSULE PO SCH (08:47)
[2019-05-22] MEDS: PANTOPRAZOLE 40 MG TABLET PO SCH (08:53)
[2019-05-22] MEDS: MONTELUKAST 10 MG TABLET PO SCH (08:53)
[2019-05-22] MEDS: ASPIRIN EC 81 MG TABLET PO SCH (08:53)
[2019-05-22] MEDS: ACETAMINOPHEN 325 MG TABLET PO SCH (08:53)
[2019-05-22 11:27] VITALS: BP 168/83
== END 2019-05-22 13:35 | disposition home or self-care (01) | DRG 314 ==
LOC: N.EDINP 08:39 → N.ED 08:39 → N.TELEN 10:40
PROVIDERS: ADMIT Internal Medicine Cardiovascular Disease; ATTEND Internal Medicine Cardiovascular Disease

== ENCOUNTER 2022-07-05 07:56 | Inpatient (IN) ==
[2022-07-05] MEDS ORDERED: ZALEPLON 5 MG CAPSULE PO PRN (10:38)
[2022-07-05] MEDS ORDERED: ALUMINUM/MAGNES/SIMETH MAX STR 30 ML UDCUP PO PRN (10:38)
[2022-07-05] MEDS ORDERED: ONDANSETRON 4 MG/2 ML VIAL IV PRN (10:38)
[2022-07-05] MEDS ORDERED: ACETAMINOPHEN 325 MG TABLET PO PRN (10:38)
[2022-07-05 10:57] LABS: Basophils % 0.7 % (0.0-0.8); Eosinophils # 0.2 10*3/uL (0.0-0.87); Eosinophils % 3.1 % (0.00-10.9); Hematocrit 39.8 VOL% (42.0-52.0); Immature Granulocytes % 0.4 %; Immature Granulocytes Absolute 0.02 #; Lymphocytes # 1.1 10*3/uL (1.4-4.0); Lymphocytes % 20.1 % (21.2-54.2); Mean Corpuscular HGB Conc 32.7 GM/DL (32-36); Mean Corpuscular Volume 91.7 FL (87-102); Mean Platelet Volume 11.2 FL (9.6-12.0); Monocytes # 0.4 10*3/uL (0.11-0.8); Monocytes % 7.9 % (1.7-12.7); Neutrophils % 67.8 % (38.7-73.9); Platelet Count 131 T/CUMM (130-400); Red Blood Count 4.34 MC/CUMM (3.8-5.5); Red Cell Distribution Width 12.8 % (9.3-17.3); White Blood Count 5.4 T/CUMM (4-12)
[2022-07-05 11:16] LABS: Albumin 3.4 G/DL (3.4-5.0); Calcium 8.3 MG/DL (8.5-10.1); Osmolality,Calculated 288.7 MOS/KG (273-304); Total Protein 5.9 G/DL (6.4-8.2)
[2022-07-05] MEDS ORDERED: NITROGLYCERIN SL 0.4 MG TABLET SL PRN (12:58)
[2022-07-05] MEDS: DOFETILIDE 250 MCG CAPSULE PO SCH (18:18)
[2022-07-05] MEDS: RIVAROXABAN 20 MG TABLET PO SCH (18:18)
[2022-07-05] MEDS: CETIRIZINE 10 MG TABLET PO SCH (20:56)
[2022-07-05] MEDS: MONTELUKAST 10 MG TABLET PO SCH (20:57)
[2022-07-05] MEDS: DOXAZOSIN 4 MG TABLET PO SCH (20:57)
[2022-07-05] MEDS: ROSUVASTATIN 10 MG TABLET PO SCH (20:57)
[2022-07-06 04:52] LABS: Basophils # 0.1 10*3/uL (0.0-0.2); Eosinophils # 0.2 10*3/uL (0.0-0.87); Eosinophils % 4.1 % (0.00-10.9); Hemoglobin 13.9 GM/DL (14.0-18.0); Immature Granulocytes % 0.2 %; Immature Granulocytes Absolute 0.01 #; Lymphocytes # 1.4 10*3/uL (1.4-4.0); Mean Corpuscular HGB Conc 33.1 GM/DL (32-36); Mean Corpuscular Volume 92.1 FL (87-102); Mean Platelet Volume 11.4 FL (9.6-12.0); Monocytes # 0.4 10*3/uL (0.11-0.8); Monocytes % 6.8 % (1.7-12.7); Neutrophils % 60.9 % (38.7-73.9); Platelet Count 132 T/CUMM (130-400); Red Blood Count 4.56 MC/CUMM (3.8-5.5); Red Cell Distribution Width 12.8 % (9.3-17.3); White Blood Count 5.1 T/CUMM (4-12)
[2022-07-06 05:08] LABS: Calcium 8.6 MG/DL (8.5-10.1); Osmolality,Calculated 288.8 MOS/KG (273-304); Potassium 3.9 MMOL/L (3.5-5.1)
[2022-07-06] MEDS: DOFETILIDE 250 MCG CAPSULE PO SCH ×2 (05:49→17:45)
[2022-07-06] MEDS: amLODIPine 2.5 MG TABLET PO SCH (08:32)
[2022-07-06] MEDS: MULTIVITAMIN (CENTRUM) TABLET PO SCH (08:32)
[2022-07-06] MEDS: ETHACRYNIC ACID 25 MG PO SCH (08:35)
[2022-07-06] MEDS: PANTOPRAZOLE 40 MG TABLET PO SCH (08:35)
[2022-07-06] MEDS: RIVAROXABAN 20 MG TABLET PO SCH (17:45)
[2022-07-06] MEDS: MONTELUKAST 10 MG TABLET PO SCH (20:37)
[2022-07-06] MEDS: CETIRIZINE 10 MG TABLET PO SCH (20:37)
[2022-07-06] MEDS: ROSUVASTATIN 10 MG TABLET PO SCH (20:37)
[2022-07-06] MEDS: DOXAZOSIN 4 MG TABLET PO SCH (20:38)
[2022-07-07] MEDS: DOFETILIDE 250 MCG CAPSULE PO SCH ×2 (05:32→17:36)
[2022-07-07 06:29] LABS: Basophils # 0.1 10*3/uL (0.0-0.2); Basophils % 0.9 % (0.0-0.8); Eosinophils # 0.2 10*3/uL (0.0-0.87); Eosinophils % 4.4 % (0.00-10.9); Hematocrit 45.4 VOL% (42.0-52.0); Immature Granulocytes % 0.2 %; Immature Granulocytes Absolute 0.01 #; Lymphocytes # 1.3 10*3/uL (1.4-4.0); Lymphocytes % 23.5 % (21.2-54.2); Mean Corpuscular Volume 91.7 FL (87-102); Mean Platelet Volume 11.9 FL (9.6-12.0); Monocytes # 0.5 10*3/uL (0.11-0.8); Monocytes % 8.5 % (1.7-12.7); Neutrophils % 62.5 % (38.7-73.9); Platelet Count 153 T/CUMM (130-400); Red Blood Count 4.95 MC/CUMM (3.8-5.5); Red Cell Distribution Width 12.9 % (9.3-17.3); White Blood Count 5.5 T/CUMM (4-12)
[2022-07-07 06:41] LABS: Calcium 8.8 MG/DL (8.5-10.1); Osmolality,Calculated 284.3 MOS/KG (273-304)
[2022-07-07] MEDS: amLODIPine 2.5 MG TABLET PO SCH (08:44)
[2022-07-07] MEDS: MULTIVITAMIN (CENTRUM) TABLET PO SCH (08:44)
[2022-07-07] MEDS: PANTOPRAZOLE 40 MG TABLET PO SCH (08:45)
[2022-07-07] MEDS: RIVAROXABAN 20 MG TABLET PO SCH (17:33)
[2022-07-07] MEDS: MONTELUKAST 10 MG TABLET PO SCH (20:34)
[2022-07-07] MEDS: ROSUVASTATIN 10 MG TABLET PO SCH (20:34)
[2022-07-07] MEDS: CETIRIZINE 10 MG TABLET PO SCH (20:35)
[2022-07-07] MEDS: DOXAZOSIN 4 MG TABLET PO SCH (20:35)
[2022-07-08 04:59] LABS: Basophils # 0.1 10*3/uL (0.0-0.2); Basophils % 0.8 % (0.0-0.8); Eosinophils # 0.3 10*3/uL (0.0-0.87); Eosinophils % 4.3 % (0.00-10.9); Hematocrit 43.9 VOL% (42.0-52.0); Hemoglobin 14.4 GM/DL (14.0-18.0); Immature Granulocytes % 0.3 %; Immature Granulocytes Absolute 0.02 #; Lymphocytes # 1.5 10*3/uL (1.4-4.0); Lymphocytes % 22.8 % (21.2-54.2); Mean Corpuscular HGB Conc 32.8 GM/DL (32-36); Mean Platelet Volume 11.1 FL (9.6-12.0); Monocytes # 0.6 10*3/uL (0.11-0.8); Monocytes % 8.4 % (1.7-12.7); Neutrophils % 63.4 % (38.7-73.9); Platelet Count 150 T/CUMM (130-400); Red Blood Count 4.77 MC/CUMM (3.8-5.5); Red Cell Distribution Width 12.6 % (9.3-17.3); White Blood Count 6.6 T/CUMM (4-12)
[2022-07-08 05:17] LABS: Calcium 8.7 MG/DL (8.5-10.1); Osmolality,Calculated 285.1 MOS/KG (273-304); Potassium 4.3 MMOL/L (3.5-5.1)
[2022-07-08] MEDS: DOFETILIDE 250 MCG CAPSULE PO SCH (06:26)
[2022-07-08] MEDS: MULTIVITAMIN (CENTRUM) TABLET PO SCH (08:21)
[2022-07-08] MEDS: amLODIPine 2.5 MG TABLET PO SCH (08:21)
[2022-07-08] MEDS: PANTOPRAZOLE 40 MG TABLET PO SCH (08:23)
[2022-07-08] MEDS: ETHACRYNIC ACID 25 MG PO SCH (09:54)
[2022-07-08] MEDS ORDERED: SODIUM CHLORIDE 0.9% 250 ML IV ONE (11:55)
[2022-07-08 12:15] VITALS: BP 150/73
== END 2022-07-08 15:26 | disposition home or self-care (01) | DRG 309 ==
LOC: N.TELEN
PROVIDERS: ADMIT Internal Medicine Cardiovascular Disease; ATTEND Internal Medicine Cardiovascular Disease